=== PATIENT | male | born 1970 | race Caucasian/White ===

== ENCOUNTER 2017-08-07 19:28 | Emergency (ER) | payer OTHER ==
[~2017-08-07] VITALS: Ht 180.3 cm; Wt 147.0 kg
[2017-08-07] MEDS ORDERED: HYDRALAZINE HCL10 MG PO (20:08)
== END 2017-08-08 13:09 | disposition home or self-care (01) ==
LOC: ER 19:28
DX: R10.2 Pelvic and perineal pain (principal); K57.32 Diverticulitis of large intestine without perforation or abscess without bleeding